=== PATIENT | male | born 1945 | race Caucasian/White ===

== ENCOUNTER 2018-03-05 13:02 | Emergency (ER) | payer MEDICARE ==
[~2018-03-05] VITALS: Ht 172.7 cm; Wt 86.2 kg
--- NOTE | ~2018-03-05 | EKG ---
[place], [place] ELECTROCARDIOGRAM REPORT NAME: AVE GALICIA UNIT #: [id number] ROOM: DOCTOR: LORNE DRAFT REPORT BIRTHDATE: [birth year] [facility] Test Date: 2018-03-05 Test Time: 13:33:46 Pat Name: AVE GALICIA Department: Room: Gender: Accounting Instructor: : 1945 Requested By: EDDI VALENTINE Order Number: [id number] Reading MD: Measurements Intervals [place] Rate: 67 P: 26 DE: 157 QRS: -57 QRSD: 99 T: 71 QT: 391 QTc: 413 Interpretive Statements Sinus rhythm Left anterior fascicular block Abnormal R-wave progression, late transition Borderline T wave abnormalities No previous ECG available for comparison CM:EKGRPT:ELECTROCARDIOGRAM REPORT [id number] EDDI NEW DRAFT REPORT EDDI VALENTINE DO
[~2018-03-05 13:02] MED LIST: AMLODIPINE BESYL5 MG PO; ASPIRIN81 M1 PO; LISINOPRIL5 MG PO
[2018-03-05 13:29] LABS: BASO % 0.5 % (0.0-1.0); EOS # 0.1 10*3/uL (0.0-0.4); EOS % 1.8 % (1.0-4.0); HEMATOCRIT 42.5 % (42.0-52.0); HEMOGLOBIN 14.5 g/dl (14.0-18.0); LYMPH # 0.9 10*3/uL (1.3-4.4); MEAN CELL VOLUME 98.8 fl (80.0-94.0); MEAN CORPUSCULAR HGB 33.7 pg (27.0-31.0); MEAN CORPUSCULAR HGB CONC 34.1 g/dl (33.0-37.0); MEAN PLATELET VOLUME 8.7 fl (9.6-12.3); MONO # 0.4 10*3/uL (0.1-1.0); MONO % 8.9 % (3.0-9.0); NEUT % 68.6 % (47.0-73.0); PLATELET COUNT AUTOMATED 178 10*3/uL (130-400); RED CELL DISTRI WIDTH 13.2 % (0-14.5); WHITE BLOOD COUNT 4.4 10*3/uL (4.8-10.8)
[2018-03-05 13:38] LABS: ACT PARTIAL THROMBO TIME 20.8 SECONDS (20.8-31.5)
[2018-03-05 13:46] LABS: ALBUMIN 3.3 gm/dl (3.1-4.5); ALKALINE PHOSPHATASE 57 U/L (45-117); BUN 21 mg/dl (7-24); CHLORIDE 104 mmol/L (98-107); CREATININE 1.46 mg/dL (0.70-1.30); LIPASE 157 U/L (73-393); POTASSIUM 3.9 mmol/L (3.5-5.1); SGOT/AST 25 IU/L (3-35); SGPT/ALT 28 U/L (12-78); SODIUM 140 mmol/L (136-145); TOTAL PROTEIN 6.6 gm/dL (6.4-8.2); TROPONIN I < 0.015 ng/ml (<0.045)
[2018-03-05] MEDS ORDERED: ZOFRAN4 MG PO (15:42)
== END 2018-03-05 15:53 | disposition home or self-care (01) ==
LOC: ED 13:02
PROVIDERS: Emergency Medicine
DX: R10.9 Unspecified abdominal pain (principal); R42 Dizziness and giddiness; F17.200 Nicotine dependence, unspecified, uncomplicated; Z88.6 Allergy status to analgesic agent; Z88.8 Allergy status to other drugs, medicaments and biological substances; Z91.040 Latex allergy status; Z88.4 Allergy status to anesthetic agent; Z79.82 Long term (current) use of aspirin; Z79.899 Other long term (current) drug therapy; Z85.038 Personal history of other malignant neoplasm of large intestine